=== PATIENT | female | born 1985 | race Caucasian/White ===

== ENCOUNTER 2016-11-26 14:53 | Emergency (ER) | payer OTHER ==
[~2016-11-26] VITALS: Ht 160 cm; Wt 80.4 kg
[~2016-11-26 14:53] MED LIST: BUPR100T8 PO; BUPR1SUB SL; LRT5 PO; OXYC-57 PO; PENI-82 PO; TRAZ50TA35 PO; [UNRECOGNIZED DRUG - CODE] PO
[2016-11-26 14:58] VITALS: BP 153/93; TEMP 36.9; Ht 160 cm; Wt 80.4 kg
[2016-11-26] MEDS ORDERED: LIDOCAINE/EPINEPHRINE 1% 20 ML VIAL INFIL ONE (15:15)
[2016-11-26] MEDS ORDERED: WLLSR150 PO (15:32)
[2016-11-26] MEDS ORDERED: ALPR1TAB3 PO (15:32)
[2016-11-26] MEDS ORDERED: BUPR8SUB19 SL (15:32)
--- NOTE | 2016-11-26 15:49 | EMERGENCY ROOM VISIT NOTE ---
ED Visit Note First contact with patient: 14:58 CHIEF COMPLAINT: Hand laceration HISTORY OF PRESENT ILLNESS: This 31-year-old female patient presents to the emergency department ambulatory after cutting the left hand just prior to arrival while washing dishes. The patient states that she cut her hand on a knife. The bleeding has stopped. Denies weakness or numbness of the hand or fingers. The patient rates the pain as stinging and 7/10. The patient denies any other injuries. The patient's Tetanus shot is up to date. REVIEW OF SYSTEMS: A 6 system review of systems was completed with positives and pertinent negatives listed in the HPI. ALLERGIES: No known drug allergies MEDICATIONS: See med list PMH: No significant past medical history. SOCIAL HISTORY: The patient lives locally with family. She is a smoker. PHYSICAL EXAM: Vital Signs: Reviewed Nurse's notes, vital signs stable. GENERAL : This is a 31-year-old female, in no acute distress, well-developed, well- nourished. SKIN: There is a 3 cm long laceration on the dorsal aspect of the lateral left hand hand. The edges gape apart with traction. There is no foreign material in the wound and it looks clean. There is no active bleeding. No deep structures such as tendons, bones, or significant blood vessels are seen in the base of the wound. Normal strength and movement of the fingers and wrist. Capillary refill less than 2 seconds. Normal sensation to light and sharp touch. EMERGENCY DEPARTMENT COURSE: I examined the patient. Verbal consent was obtained to perform the procedure. Using sterile technique the wound was cleansed with Betadine. The area was sterilely draped. For ml of 1% buffered lidocaine with epinephrine was used to anesthetize the laceration on the hand. Once the patient was anesthetized, the wound was copiously irrigated under pressure with sterile saline. The wound was explored and was as described above. The laceration was repaired using 4 simple interrupted 5-0 nylon sutures with the wound edges being well approximated. The patient tolerated the procedure well. Hemostasis was achieved. The area was cleaned with sterile saline and dressed with bacitracin ointment and bandage. The patient was discharged home in good condition. DIAGNOSIS: Hand laceration Current/Historical Medications Scheduled Buprenorphine Hcl (Subutex), 1 TAB SL TID Bupropion HCl (Bupropion HCl Sr), 150 MG PO BID Scheduled PRN Alprazolam (Xanax), 1 MG PO BID PRN for Anxiety Allergies Coded Allergies: No Known Allergies (Unverified Allergy, Mild, 02/19/07) Vital Signs Date Time Temp Pulse Resp B/P (MAP) Pulse Ox O2 Delivery O2 Flow Rate FiO2 11/26/16 16:10 82 16 96 11/26/16 14:58 36.9 102 16 153/93 96 Room Air Departure Information Impression Primary Impression: Hand laceration Dispostion Home / Self-Care Condition GOOD Referrals No Doctor, Assigned (PCP) Patient Instructions My [facility] Additional Instructions You have received 4 sutures on your left hand. These sutures are NOT dissolvable and WILL need to be removed by a health care provider in 12-14 days. You can return to the Emergency Department or contact your Primary Care Provider to have the sutures removed. Proper wound care is essential for adequate wound healing and infection prevention. You can shower and clean the wound with soap and water. Do not scour over the wound, pat dry with a towel. Do not submerse the wound (i.e. bathe or dish wash) until the sutures have been removed. You can use an antibiotic ointment with a dressing over the wound for the next 3-4 days. After this time you may leave the wound dry and open to the air. If crust develops over the wound you can use a Q-tip to apply a 1:1 peroxide:water solution to clean the wound. Look for signs of infection of the wound including: increased pain, swelling, foul discharge, streaking, or increased temperature. If any of these are noticed you should return to the Emergency Department for further assessment and treatment. As with any laceration you may have received nerve damage to the surrounding tissues. This damage may or may not be permanent. You should keep the area covered with sunscreen for the first 6 months to 1 year when at risk for exposure to help minimize scarring. You can also use scar reducing creams or Vitamin E oil to help minimize scarring. For pain control, you can use the following jbqs-cob-hakydio medicines (if >12 yo): - Regular strength (325mg/tab) Tylenol (acetaminophen) 2 tabs every 4-6 hours as needed. Do not exceed 12 tablets in a 24 hour period. Avoid taking more than 4 grams (4000 mg) of Tylenol per day. This includes any other sources of acetaminophen you may take on a regular basis. - Regular strength (200 mg/tab) Advil (ibuprofen) 1-2 tabs every 4-6 hours as needed. Do not exceed a dose of 3200 mg per day. Return to the emergency department if your symptoms worsen despite treatment course outlined above. Problem Qualifiers Primary Impression: Hand laceration Encounter type: initial encounter Foreign body presence: without foreign body Laterality: left Qualified Codes: S61.412A - Laceration without foreign body of left hand, initial encounter
[2016-11-26 16:10] VITALS: PULSE 82; O2SAT 96
== END 2016-11-26 16:11 | disposition home or self-care (01) ==
LOC: C.EDB 14:55 → C.EDD 16:11
DX: S61.412A Laceration without foreign body of left hand, initial encounter (principal); W26.0XXA Contact with knife, initial encounter; Y93.G1 Activity, food preparation and clean up; Y99.8 Other external cause status

== ENCOUNTER 2017-01-18 16:31 | Emergency (ER) | payer OTHER ==
[~2017-01-18] VITALS: Ht 160 cm; Wt 91.2 kg
[~2017-01-18 16:31] MED LIST changes: +ALPR1TAB3 PO; -BUPR100T8 PO; -BUPR1SUB SL; +BUPR8SUB19 SL; -LRT5 PO; -OXYC-57 PO; -PENI-82 PO; -TRAZ50TA35 PO; +WLLSR150 PO; -[UNRECOGNIZED DRUG - CODE] PO
[2017-01-18 16:44] VITALS: TEMP 36.7; Ht 160 cm; Wt 91.2 kg
[2017-01-18 17:36] LABS: BASO % 0.3 %; BASO ABS # 0.03 K/uL (0-0.2); COMPLETE YES; HEMATOCRIT 40.1 % (37-47); IG% 0.4 %; LYMPH % 25.9 %; LYMPH ABS # 2.47 K/uL (1.2-3.4); MEAN CELL VOLUME 95.5 fL (80-100); MEAN CORPUSCULAR HEMOGLOBIN 33.3 pg (25-34); MEAN CORPUSCULAR HGB CONC 34.9 g/dl (32-36); MEAN PLATELET VOLUME 9.4 fL (7.4-10.4); MONO % 6.9 %; NEUT % 62.5 %; PLATELET COUNT 246 K/uL (130-400); WHITE BLOOD COUNT 9.52 K/uL (4.8-10.8)
[2017-01-18 17:56] LABS: BUN/CREATININE RATIO 13.2 (10-20); CALCIUM 9.9 mg/dl (8.5-10.1); CREATININE 0.81 mg/dl (0.60-1.20); POTASSIUM 3.7 mmol/L (3.5-5.1)
[2017-01-18 17:59] LABS: ALB/GLOB RATIO 0.9 (0.9-2)
--- NOTE | 2017-01-18 18:11 | DIAGNOSTIC IMAGING REPORT ---
CHEST ONE VIEW PORTABLE CLINICAL HISTORY: 31 years-old Female presenting with right rib pain. TECHNIQUE: Portable upright AP view of the chest was obtained. COMPARISON: 07/31/2007 FINDINGS: Cardiomediastinal silhouette normal. Bandlike opacity in the lingula. Lungs and pleural spaces otherwise clear. Osseous structures normal. Upper abdomen normal. IMPRESSION: 1. Bandlike opacity in the lingula, possibly minimal subsegmental atelectasis. No other acute cardiopulmonary disease. 2. No displaced rib fracture is evident. Electronically signed by: Sam Hoyt M.D. 01/18/2017 6:10 PM Dictated Date/Time: 01/18/2017 6:04 PM
--- NOTE | 2017-01-18 19:19 | EMERGENCY ROOM VISIT NOTE ---
History First contact with patient: 16:53 Chief Complaint: RIB PAIN Stated Complaint: SHARP PAIN ON RIGHT SIDE/RIBS-APPROX 6WEEKS PREGNA History of Present Illness The patient is a 31 year old female who presents to the Emergency Room with complaints of sharp pains in the right side of her ribs. The patient states that she developed sharp pain in her right ribs today. Prior to developing the pain, she had been putting groceries away and with bending over. She denies any specific injury to the ribs. She states she also had some pain one week ago. She saw her primary care provider, who thought this was likely muscular. She does state she had been "horsing around" with her family prior to that. She states the pain is worse with deep breath and she has mild associated shortness of breath. She is approximately 6 weeks . She denies any pain in her lower abdomen or vaginal bleeding. She denies any cough or chest pain. The patient is a former smoker and states she has been trying to quit using E cigarettes and nicotine patches. She denies any history of blood clots , but believes she has a family history of blood clots in her grandmother. She denies any recent long trips. Review of Systems A complete 10 point review of systems was reviewed with the patient with pertinent positives and negatives as per history of present illness. All else were negative. Social History Smoking Status: Current Every Day Smoker Marital Status: Occupation Status: unemployed, student Current/Historical Medications Scheduled Buprenorphine Hcl (Subutex), 1 TAB SL TID Bupropion HCl (Bupropion HCl Sr), 150 MG PO DAILY Scheduled PRN Alprazolam (Xanax), 1 MG PO BID PRN for Anxiety Physical Exam Vital Signs Date Time Temp Pulse Resp B/P (MAP) Pulse Ox O2 Delivery O2 Flow Rate FiO2 01/18/17 19:26 66 18 113/65 98 Room Air 01/18/17 18:13 70 18 127/74 98 Room Air 01/18/17 16:44 36.7 85 16 143/87 95 Room Air Physical Exam VITALS: Vitals are noted on the nurse's note and reviewed by myself. Vital signs stable. GENERAL: This is a 31-year-old female, in no acute distress, nondiaphoretic, well-developed well-nourished. SKIN: No rashes noted. HEART: Regular rate and rhythm without murmurs gallops or rubs. LUNGS: Clear to auscultation bilaterally without wheezes, rales or rhonchi. ABDOMEN: Positive bowel sounds x 4. Soft, nontender to palpation. MUSCULOSKELETAL: No reproducible pain on palpation. NEURO: Patient was alert and oriented to person place and time. Medical Decision & Procedures ER Provider Diagnostic Interpretation: CHEST ONE VIEW PORTABLE CLINICAL HISTORY: 31 years-old Female presenting with right rib pain. TECHNIQUE: Portable upright AP view of the chest was obtained. COMPARISON: 07/31/2007 FINDINGS: Cardiomediastinal silhouette normal. Bandlike opacity in the lingula. Lungs and pleural spaces otherwise clear. Osseous structures normal. Upper abdomen normal. IMPRESSION: 1. Bandlike opacity in the lingula, possibly minimal subsegmental atelectasis. No other acute cardiopulmonary disease. 2. No displaced rib fracture is evident. Laboratory Results 01/18/17 17:24 Red Blood Count 4.20, Mean Corpuscular Volume 95.5, Mean Corpuscular Hemoglobin 33.3, Mean Corpuscular Hemoglobin Concent 34.9, Mean Platelet Volume 9.4, Neutrophils (%) (Auto) 62.5, Lymphocytes (%) (Auto) 25.9, Monocytes (%) (Auto) 6.9, Eosinophils (%) (Auto) 4.0, Basophils (%) (Auto) 0.3, Neutrophils # (Auto) 5.94, Lymphocytes # (Auto) 2.47, Monocytes # (Auto) 0.66, Eosinophils # (Auto) 0.38, Basophils # (Auto) 0.03 01/18/17 17:24 Test 01/18/17 17:24 01/18/17 18:21 White Blood Count 9.52 K/uL (4.8-10.8) Red Blood Count 4.20 M/uL (4.2-5.4) Hemoglobin 14.0 g/dL (12.0-16.0) Hematocrit 40.1 % (37-47) Mean Corpuscular Volume 95.5 fL (80-100) Mean Corpuscular Hemoglobin 33.3 pg (25-34) Mean Corpuscular Hemoglobin Concent 34.9 g/dl (32-36) Platelet Count 246 K/uL (130-400) Mean Platelet Volume 9.4 fL (7.4-10.4) Neutrophils (%) (Auto) 62.5 % Lymphocytes (%) (Auto) 25.9 % Monocytes (%) (Auto) 6.9 % Eosinophils (%) (Auto) 4.0 % Basophils (%) (Auto) 0.3 % Neutrophils # (Auto) 5.94 K/uL (1.4-6.5) Lymphocytes # (Auto) 2.47 K/uL (1.2-3.4) Monocytes # (Auto) 0.66 K/uL (0.11-0.59) Eosinophils # (Auto) 0.38 K/uL (0-0.5) Basophils # (Auto) 0.03 K/uL (0-0.2) RDW Standard Deviation 46.9 fL (36.4-46.3) RDW Coefficient of Variation 13.5 % (11.5-14.5) Immature Granulocyte % (Auto) 0.4 % Immature Granulocyte # (Auto) 0.04 K/uL (0.00-0.02) Anion Gap 6.0 mmol/L (3-11) Est Creatinine Clear Calc Drug Dose 106.9 ml/min Estimated GFR () 111.4 Estimated GFR (Non- 96.1 BUN/Creatinine Ratio 13.2 (10-20) Calcium Level 9.9 mg/dl (8.5-10.1) Total Bilirubin 0.3 mg/dl (0.2-1) Aspartate Amino Transf (AST/SGOT) 24 U/L (15-37) Alanine Aminotransferase (ALT/SGPT) 35 U/L (12-78) Alkaline Phosphatase 66 U/L (45-117) Total Protein 7.9 gm/dl (6.4-8.2) Albumin 3.7 gm/dl (3.4-5.0) Globulin 4.2 gm/dl (2.5-4.0) Albumin/Globulin Ratio 0.9 (0.9-2) D-Dimer 310 ug/L FEU (0-500) ED Course The patient was evaluated as above. Labs were drawn and IV access was obtained. Patient was reevaluated and findings were discussed. She is ready for discharge. Discharge instructions were reviewed with the patient. The patient verbalized understanding of my assessment and treatment plan and was discharged home in good condition. Medical Decision Differential diagnosis includes pneumonia, rib strain, rib fracture, pulmonary embolism, herpes zoster, gallbladder disease, pancreatitis, among others. The patient is a 31-year-old female who presents today complaining of right-sided rib pain. The pain is not reproducible on examination. There was no specific injury to the area. X-ray was read by radiology with no acute rib fractures or pneumonia. D-dimer was not elevated and given relatively low risk for pulmonary embolism, no further workup is needed. Labs were unremarkable. I informed the patient that the pain is likely musculoskeletal in nature. Conservative measures were discussed including Tylenol and ice. The patient will follow-up with her primary care provider or [facility] as needed. She will return here for any worsening or new/concerning symptoms. Based on the patient's presentation and work up, I feel the patient is stable for outpatient treatment. The patient was educated to return to the emergency department for any worsening of their current condition or new/concerning symptoms. She will follow up with her primary care provider. Medication Reconcilliation Current Medication List: was personally reviewed by me Blood Pressure Screening Patient's blood pressure: Normal blood pressure Impression Primary Impression: Rib pain on right side Departure Information Dispostion Home / Self-Care Condition GOOD Referrals Trisha Bañuelos A. P.AColt (PCP) Patient Instructions My [facility] Additional Instructions For pain control, you can use the following ztyd-ipv-onjaigc medicines (if >12 yo): - Regular strength (325mg/tab) Tylenol (acetaminophen) 2 tabs every 4-6 hours as needed. Do not exceed 12 tablets in a 24 hour period. Avoid taking more than 4 grams (4000 mg) of Tylenol per day. This includes any other sources of acetaminophen you may take on a regular basis. Follow-up with your primary care provider or [facility] for further evaluation. Return to the emergency department with any worsening or new/concerning symptoms.
[2017-01-18 19:26] VITALS: BP 113/65; PULSE 66; O2SAT 98
== END 2017-01-18 19:28 | disposition home or self-care (01) ==
LOC: C.EDB 16:33 → C.EDA 19:28
DX: R07.81 Pleurodynia (principal); F17.200 Nicotine dependence, unspecified, uncomplicated; Z33.1 Pregnant state, incidental; Z83.2 Family history of diseases of the blood and blood-forming organs and certain disorders involving the immune mechanism

== ENCOUNTER → 2017-06-11 | Outpatient (CLI) | payer OTHER | END | disposition home or self-care (01) | LOC: C.CPL 14:16 | PROVIDERS: ATTEND Obstetrics & Gynecology | DX: O35.8XX0 Maternal care for other (suspected) fetal abnormality and damage, not applicable or unspecified (principal) ==

== ENCOUNTER 2017-07-12 08:32 | Emergency (ER) | payer OTHER ==
[~2017-07-12] VITALS: Ht 160 cm; Wt 95.5 kg
[2017-07-12 08:34] VITALS: TEMP 37.1; Ht 160 cm; Wt 95.5 kg
[2017-07-12] MEDS ORDERED: XYLOCAINE 1%/SOD BICARB 20 ML VIAL INFIL STA (08:49)
--- NOTE | 2017-07-12 08:52 | EMERGENCY ROOM VISIT NOTE ---
ED Visit Note First contact with patient: 08:41 CHIEF COMPLAINT: Left ring Finger laceration HISTORY OF PRESENT ILLNESS: This 31-year-old female patient presents to the emergency department approximately 30 minutes after cutting the left ring finger when a candle she was holding in the bathroom shattered. The bleeding has not stopped. Denies weakness or numbness of the finger. The patient has full range of motion of the fingers. The patient rates the pain as sharp and 7/ 10. The patient denies any other injuries. The patient's tetanus shot is up to date. The patient is 7 months . REVIEW OF SYSTEMS: A 6 system review of systems was completed with positives and pertinent negatives listed in the HPI. ALLERGIES: Levofloxacin MEDICATIONS: Subutex, Xanax, Wellbutrin, vitamins PMH: Anxiety, depression, addiction SOCIAL HISTORY: The patient lives locally with family. She denies drug, alcohol use. She admits to smoking a quarter pack of cigarettes per day. PHYSICAL EXAM: Vital Signs: Reviewed Nurse's notes, vital signs stable. GENERAL : This is a 31-year-old white female, in no acute distress, well developed, well nourished. SKIN: There is a 2 cm long laceration on the anterior aspect of the ring finger. The edges gape apart with traction. There is no foreign material in the wound and it looks clean. There is moderate active bleeding. No deep structures such as tendons, bones, or significant blood vessels are seen in the base of the wound. Extension and flexion of the finger is full and strong. Full range of motion of the wrist and other fingers. Capillary refill less than 2 seconds. Normal sensation to light and sharp touch. EMERGENCY DEPARTMENT COURSE: I examined the patient. Verbal consent was obtained to perform the procedure. Using sterile technique the wound was cleansed with Betadine. 6 ml of 1% buffered lidocaine was used to perform a digital block to anesthetize the patient. The area was sterilely draped. Once the patient was anesthetized, the wound was copiously irrigated under pressure with sterile saline. The wound was explored and there were no deep structures injured. The laceration was repaired using 9 simple interrupted 5-0 nylon sutures. The patient tolerated the procedure well. Hemostasis was achieved. The area was cleaned with sterile saline and dressed with bacitracin ointment and bandage. The patient was discharged home in good condition. I attest that I have personally reviewed the patient's current medication list. Patient was found to have normal blood pressure on screening and does not require follow-up. Differential includes laceration, avulsion, fracture, contusion, and others DIAGNOSIS: Finger laceration Current/Historical Medications Scheduled Buprenorphine Hcl (Subutex), 1 TAB SL TID Bupropion HCl (Bupropion HCl Sr), 150 MG PO DAILY Multivit/Min/Iron/Fol Ac/Pren ( Vitamin), 1 TAB PO DAILY Omeprazole (Prilosec), 20 MG PO DAILY Ranitidine (Zantac), 150 MG PO DAILY Scheduled PRN Alprazolam (Xanax), 1 MG PO BID PRN for Anxiety Allergies Coded Allergies: Levofloxacin (Unverified Adverse Reaction, Severe, NAUSEA/VOMITING, 07/12/17 ) Vital Signs Date Time Temp Pulse Resp B/P (MAP) Pulse Ox O2 Delivery O2 Flow Rate FiO2 07/12/17 10:37 75 16 124/79 94 07/12/17 08:34 37.1 93 17 143/97 97 Room Air Departure Information Impression Primary Impression: Laceration of finger Dispostion Home / Self-Care Condition GOOD Referrals Trisha Bañuelos A. P.AColt (PCP) Patient Instructions ED Laceration Ext Sutr Stap Tape, [facility] [employer] Additional Instructions You have received 9 sutures on your left ring finger. These sutures are NOT dissolvable and WILL need to be removed by a health care provider in 12-14 days. You can return to the Emergency Department or contact your Primary Care Provider to have the sutures removed. Proper wound care is essential for adequate wound healing and infection prevention. You can shower and clean the wound with soap and water. Do not scour over the wound, pat dry with a towel. Do not submerse the wound (i.e. bathe or dish wash) until the sutures have been removed. You can use an antibiotic ointment with a dressing over the wound for the next 3-4 days. After this time you may leave the wound dry and open to the air. If crust develops over the wound you can use a Q-tip to apply a 1:1 peroxide:water solution to clean the wound. Look for signs of infection of the wound including: increased pain, swelling, foul discharge, streaking, or increased temperature. If any of these are noticed you should return to the Emergency Department for further assessment and treatment. As with any laceration you may have received nerve damage to the surrounding tissues. This damage may or may not be permanent. You should keep the area covered with sunscreen for the first 6 months to 1 year when at risk for exposure to help minimize scarring. You can also use scar reducing creams or Vitamin E oil to help minimize scarring. For pain control, you can use the following tels-ibw-jykyybe medicines (if >12 yo): Acetaminophen(Tylenol) may be used for fever or pain. Use 1000mg every six hours as needed. Avoid using more than 3000mg in a 24 hour period. Return to the emergency department if your symptoms worsen despite treatment course outlined above. Work Instructions Return To Work: 2 days Problem Qualifiers Primary Impression: Laceration of finger Encounter type: initial encounter Finger: ring finger Damage to nail status : without damage Foreign body presence: without foreign body Laterality: left Qualified Codes: S61.215A - Laceration without foreign body of left ring finger without damage to nail, initial encounter
[2017-07-12] MEDS ORDERED: PRLSR20 PO (08:54)
[2017-07-12] MEDS ORDERED: PRENTAB26 PO (08:54)
[2017-07-12] MEDS ORDERED: ZNTT/150 PO (08:54)
[2017-07-12 10:37] VITALS: BP 124/79; PULSE 75; O2SAT 94
[2017-07-12] MEDS ORDERED: ALPR1TAB3 PO (15:32)
[2017-07-12] MEDS ORDERED: BUPR8SUB19 SL (15:32)
[2017-07-12] MEDS ORDERED: WLLSR150 PO (15:32)
== END 2017-07-12 10:38 | disposition home or self-care (01) ==
LOC: C.EDB 08:34 → C.EDA 10:38
DX: S61.215A Laceration without foreign body of left ring finger without damage to nail, initial encounter (principal); W45.8XXA Other foreign body or object entering through skin, initial encounter; F41.9 Anxiety disorder, unspecified; F32.9 Major depressive disorder, single episode, unspecified